=== PATIENT | male | born 1990 | race American Indian/Alaskan Native ===

== ENCOUNTER 2021-11-24 14:47 | Emergency (ER) | payer SELFPAY ==
[2021-11-24 19:30] LABS: Bacteria,Urine 1+ /HPF (Negative); Bilirubin,Urine NEG (Negative); Blood,Urine NEG (Negative); Color,Urine Yellow (Yellow); Mucus,Urine FEW /HPF; Protein,Urine <15 mg/dL mg/dL (Negative); Urobilinogen,Urine < 2.0 mg/dL (<2.0)
[2021-11-24] MEDS ORDERED: LIDOCAINE-MPF (1%) 10 MG/1 ML VIAL 5 ML INFILTRATI ONE (19:54)
[2021-11-24] MEDS ORDERED: AZITHROMYCIN 250 MG TAB PO ONE (19:58)
--- NOTE | 2021-11-24 20:03 | Emergency Department Report ---
ED Male HPI - General Chief complaint: Urogenital-Male Stated complaint: DISCHARGE GENITAL Time Seen by Provider: 11/24/21 18:46 Source: patient Mode of arrival: Ambulatory Limitations: No Limitations - History of Present Illness Initial comments: 31 yo M who present with penile yellowish discharge with discomfort x the last 2 days. Pt also reports a single open vesicle as well. He reports only one sexual partner. He mentioned that he just moved to [place] about 2 months ago. No fever or chills reported. No other modifying or associated factors reported. - Related Data Previous Rx's Medication Instructions Recorded Last Taken Type Acyclovir [Zovirax Tab] 400 mg PO Q8H 7 Days #21 tab NS 11/24/21 Unknown Rx Allergies Allergy/AdvReac Type Severity Reaction Status Date / Time No Known Allergies Allergy Unverified 11/24/21 15:58 ED Review of Systems ROS: Stated complaint: DISCHARGE GENITAL Other details as noted in HPI Comment: All other systems reviewed and negative Genitourinary: dysuria, discharge. denies: urgency, hematuria, testicular pain, testicular mass ED Past Medical Hx - Past Medical History Previous Medical History?: No - Surgical History Past Surgical History?: No - Medications Home Medications: Home Medications Medication Instructions Recorded Confirmed Last Taken Type Acyclovir [Zovirax Tab] 400 mg PO Q8H 7 Days #21 tab NS 11/24/21 Unknown Rx ED Physical Exam - General Limitations: No Limitations General appearance: alert, in no apparent distress - Head Head exam: Present: normal inspection - Eye Eye exam: Present: normal appearance Pupils: Present: normal accommodation - ENT ENT exam: Present: normal exam, normal orophraynx, mucous membranes moist - Neck Neck exam: Present: normal inspection, full ROM. Absent: tenderness, meningismus - Respiratory Respiratory exam: Present: normal lung sounds bilaterally. Absent: respiratory distress, accessory muscle use - Cardiovascular Cardiovascular Exam: Present: regular rate, normal rhythm, normal heart sounds - GI/Abdominal GI/Abdominal exam: Present: soft, normal bowel sounds. Absent: distended, tenderness - exam: Present: urethral discharge (yellowish discharge with single open lesi on at the ventral shaft ). Absent: testicular tenderness, scrotal swelling, circumcision External exam: Present: lesions - Extremities Exam Extremities exam: Present: normal inspection, full ROM, normal capillary refill. Absent: tenderness ED Course Vital Signs 11/24/21 15:57 Temperature 98.6 F Pulse Rate 80 Respiratory 18 Rate Blood Pressure 142/75 O2 Sat by Pulse 97 Oximetry - Reevaluation(s) Reevaluation #1: 11/24/21 20:04 here with penile yellowish discharge x 2 days --examination with bedside nurse Shauna noted with single open vesicular lesion at the ventral shaft with confirmed yellowish discharge from the urethral -- no testicular tenderness noted or swellings or erythema-- pt will be treated for Gonorrhea and Chlamydia with Azithromycin 1 g PO x 1 and Rocephin 500 mg IM x 1-- and d/c home on Acyclovir for 7 days for possible genital herpes as well. Urine GC/Chlamydia sent and pending at this time. UA negative for nitrite but with small urine leukocytes that could be contaminant 11/24/21 20:12 Critical care attestation.: If time is entered above; I have spent that time in minutes in the direct care of this critically ill patient, excluding procedure time. 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 Disposition: 01 HOME / SELF CARE / HOMELESS Is pt being admited?: No Does the pt Need Aspirin: No Condition: Stable Instructions: Urethritis, Adult, Genital Herpes, Safe Sex, Gonorrhea Additional Instructions: Please follow the above printed materials closely to help prevent sexually transmitted disease And please advice your partner to get evaluated and treated as well Call and schedule a follow up with your doctor in the next 3-5 days for progress Please do not hesitate to call or return to ED if your symptoms worsen Prescriptions: Acyclovir [Zovirax Tab] 400 mg PO Q8H 7 Days #21 tab NS Referrals: PRIMARY CARE, [Primary Care Provider] - 3-5 Days Time of Disposition: 20:13
[2021-11-24 20:56] VITALS: BP 146/73
== END 2021-11-24 20:56 | disposition home or self-care (01) ==
LOC: ED 14:47
DX: R36.9 Urethral discharge, unspecified (principal); A60.02 Herpesviral infection of other male genital organs; Z20.2 Contact with and (suspected) exposure to infections with a predominantly sexual mode of transmission; Z79.899 Other long term (current) drug therapy
CPT/HCPCS: 81001; 87086; 96372; 99283; J0696; J3490